=== PATIENT | male | born 1995 ===

== ENCOUNTER 2025-08-02 12:47 | Outpatient (CLI) | payer OTHER, SELFPAY ==
--- OUTSIDE RECORDS SUMMARY | 2020-05-17 08:45 | XMS_ITS | Continuity of Care Document ---
Author Organization [facility] nters Address [address] [place] [address] Phone Care Team Providers Care Parts Sales Advisor Name Role Phone Luis M Pino OD Unavailable Unavailable Allergies, Adverse Reactions, Alerts Substance Reaction Status Criticality No Known Allergies Active No Inform ation Medications Medication Instructions Dosage Effective Dates (start - stop) Status Comments Keflex 500 mg capsule 1 po bid - Active prednisone 20 mg tablet take 1 tablet (20MG) by oral route 2 times every day 20 MG - Active LACTULOSE (unknown strength) Not Available - Active prednisone 20 mg tablet take 2 tablet by oral route 2 times every day 40 MG - Active erythromycin 5 mg/gram (0.5 %) eye ointment apply (1CM) by ophthalmic route 2 times every day ribbon into the lower conjunctival sac(s) in the affected eye(s) 1 CM - No Longer Active Procedures Procedure Date OV EST DETAILED OV NEW MODERATE OV EST DETAILED Limited Oral Evaluation Problem Focused Intraoral Periapical First Film Prophylaxis Adult Topical Application Of Fluor jailene (Prophylaxis Not Included) Adult Dental Work Complete 2011 Exam 11 Comprehensive Oral Evaluatio n New Or Established Patient Intraoral Periapical First Film Bitewings Four Films Panoramic Film First Visit With Dental Advance Directives Directive Yes / No Effective Date File Name No Information Encounters Encounter Description Practice Location Reason(s) For Visit Diagnoses Date Provider Providers Copied on Encounter OV EST DETAILED [facility], [address], [place], [place], [id number], [place] tel:[phone] [facility] redness (chief complaint) Abrasion of left cornea, initial encounter 0 Alvarez Asencio. [address] [place] [address], [id number] [place], [place], [place], [id number], [place]. tel:[phone] OV NEW MODERATE [facility], [address], [place], [place], [id number], [place] tel:[phone] [facility] Family Practice Health Maintenance (chief complaint)ER f/u (chief complaint) JaundiceAlcoho lic hepatitis with ascites 8 Benjamín Alicia. [address], [id number] [place], [place], [place], [id number], [place]. tel:[phone] OV EST DETAILED [facility], [address], [place], [place], [id number], [place] tel:[phone] [facility] Urgent Care sore throat (chief complaint) Acute tonsillitis 3 Luois Salvador. [address], [id number] [place], [place], [place], [id number], [place]. tel:[phone] [place] [address], [address], [place], [place], [id number], [place] tel:[phone] [facility] Dental No Information 3 Jihan Gary. [address], [id number] [place], [place], [place], [id number], [place]. tel:[phone] [place] [address], [address], [place], [place], [id number], [place] tel:[phone] [facility] Dental No Information 1 Javier Zavala. [address], [place], [address]. tel:[phone] [facility], [address], [place], [place], [id number], [place] tel:[phone] [facility] Dental No Information 1 Jihan Gary. [address], [id number] [place], [place], [place], [id number], [place]. tel:[phone] Family History Family Member Type Diagnosis Age At Onset Paternal grandfather Problem (finding) hypertension Problem (finding) Family history of hyper tension Problem (finding) No family hist ory of Diabetes mellitus Payers Payer name Insurance type Covered republican ID Authoriza tion(s) No Information Social History Type Description Quantity Date Captured Comments Alcohol Use Details Unknown Caffeine Use Details Unknown Tobacco Use Status Smoking Status No Information Non-Smoking Tobacco Use Details : No Details Available : No Details Available Sex Male Sexual Orientation Straight or heterosexual Gender Identity Male Chief Complaint And Reason For Visit From encounter dated '05/17/2020 13:45'. redness (chief complaint). Description: The 24 year old male presents for evaluation of redness in the left > right. Was working under your car and got something into the eye about 2 days ago. Reason For Referral Reason For Referral No Information Plan Of Treatment Date Type Action Status Goal PHQ-9. Due on du e Goal BMP. Due on due Goal Dental Exam. Due on 020 due Goal HIV Ab. Due on d ue Goal HIV Ab. Due on d ue Goal BMP. Due on due Goal Dental Exam. Due on 018 due Goal PHQ-9. Due on du e Goal Tobacco cessation counseling completed Referral Ordered: Referrals: Liver Specialist. Evaluate and treat ordered History Of Present Illness Encounter Date Complaint History Of Prese nt Illness redness The 24 year old male presents for evaluation of redness in the left > right. Was working under your car and got something into the eye about 2 days ago. ER f/u seen in the ER a t Tim 07/17/18 for jaundice and alcohol abuse Health Maintenance due flu, tdap , and men b Functional Status Date Functional Assessmen t No Information Instructions Date Instruction Additional Infor mation Return in 1-2 weeks Related to A brasion of left cornea, initial encounter Impression/Plan Related to Abras ion of left cornea, initial encounter cont. with specialist Related to Jaundice EDU Related to Acute tonsillitis Assessments Type Assessment Date assessment Abrasion of left cornea, initial encounter impression Abrasion of left cornea, initial encounter: S05.02XA Patient Care Teams Name Effective Dates (start - stop) Status Members No Information
--- OUTSIDE RECORDS SUMMARY | 2021-12-20 10:15 | XMS_ITS | Continuity of Care Document ---
Author Organization [facility] nters Address [address] [place] [address] Phone Care Team Providers Care Hand Hardener Name Role Phone Ariel URIAS, Moreno Unavailable Unavailable Allergies, Adverse Reactions, Alerts Substance Reaction Status Criticality No Known Allergies Active No Inform ation Medications Medication Instructions Dosage Effective Dates (start - stop) Status Comments naproxen 500 mg tablet take 1 tablet by oral route 2 times every day with food as needed 500 MG - Active hydrocodone 5 mg-acetaminophen 325 mg tablet take 1 tablet by oral route every 6 hours as needed for pain 1.00 tablet - Active Augmentin 875 mg-125 mg tablet take 1 tablet by oral route every 12 hours - No Longer Active Procedures Procedure Date IMMUNIZATION ADMIN ONEVACCINE INTRMUSCUL AR TD VACCINE >7 IM OV NEW DETAILED Advance Directives Directive Yes / No Effective Date File Name No Information Encounters Encounter Description Practice Location Reason(s) For Visit Diagnoses Date Provider Providers Copied on Encounter OV NEW DETAILED [facility], [address], [place], [place], [id number], [place] tel:[phone] [facility] Injury (chief complaint)He alth Maintenance (chief complaint) Dog bite, initial encounterCellulit is of left upper extremityNeed for tetanus, diphtheria, and acellular pertussis (Tdap) vaccine 2 Ariel Mayer. [address], [id number], [place], [place], [id number] , [place]. tel:[phone] Family History Family Member Type Diagnosis Age At Onset No Information Immunizations Vaccine Date Status Comments [facility] administered Source: [facility] unization Record Payers Payer name Insurance type Covered libertarian ID Yonathan eduardo(s) Self Pay OF [id number] Self Pay OF [id number] Social History Type Description Quantity Date Captured Comments Alcohol Use Details No Caffeine Use Details No Tobacco Use Status Current non-smoker Smoking Status Never smoker Non-Smoking Tobacco Use Details : No Details Available : No Details Available Sex Male Sexual Orientation Straight or heterosexual Gender Identity Male Vital Signs Date / Time: Height Weight BMI Pulse Rate Blood Pressure Temperature Respiratory Rate Body Surface Area Head Circumference Head Circ. Percentile Wt./Prasanna. Percentile BMI percentile Pulse Ox Inhaled Ox 3:38 PM 72.00 in 86.273 kg (190.20 lbs) 25.8 0 kg/m eter (2) 87 /min 144/92 mm[Hg] 18 /min 96 % Chief Complaint And Reason For Visit From encounter dated '12/20/2021 15:15'. Injury (chief complaint). Description: This is an initial visit. Mechanism of injury details: breaking up dog fight last night. The patient was bitten by a dog on the left hand and is described as aching. Health Maintenance (chief complaint). Description: VACCINES DUE_KSS Reason For Referral Reason For Referral No Information Plan Of Treatment Date Type Action Status Goal HIV Ab. Due on d ue Goal BMP. Due on due Goal Dental Exam. Due on 022 due Goal PHQ-9. Due on du e History Of Present Illness Encounter Date Complaint History Of Prese nt Illness Health Maintenance VACCINES DUE_ KSS Injury This is an initi al visit. Mechanism of injury details: breaking up dog fight last night. The patient was bitten by a dog on the left hand and is described as aching. Functional Status Date Functional Assessmen t No Information Instructions Date Instruction Additional Infor mation No Information Assessments Type Assessment Date assessment Dog bite, initial encounter assessment Cellulitis of left upper extremi ty assessment Need for tetanus, di phtheria, and acellular pertussis (Tdap) vaccine impression Sec to dog biterepor ts known dog who are fully vaccinated Tetanus updatedtreat with AugmentinNaproxen and [place] prn for pain clear ED precautions given rtc in 4-5 days for follow up Mental Status Date Cognitive Assessment Orientation - [place] ed to time, place, person, situation. Patient Care Teams Name Effective Dates (start - stop) Status Members No Information
--- OUTSIDE RECORDS SUMMARY | 2025-08-02 12:54 | XMS_ITS | Clinical Summary ---
Author Organization [facility] Address [address] [place] [address] Care Team Providers Care Photo Print Specialist Name Role Phone Andrea David MD, [facility] Primary Care Provider [phone] Allergies No known active allergies Medications levETIRAcetam (KEPPRA) 1000 MG tablet Take 1 tablet (1,000 mg total) by mouth 2 (two) times daily. Active Clindamycin-Tremayne zoyl Per, Refr, 1.2-5 % Gel Active Acetaminophen 325 MG Cap Active aspirin 325 MG tablet Take 1 tablet (325 mg total) by mouth daily. Active polycarbophil (FIBERCON) 625 MG tablet Take 1 tablet (625 mg total) by mouth daily. Active chlorpheniramin e (CHLOR-TRIMETON ) 4 MG tablet Take 1 tablet (4 mg total) by mouth every 6 (six) hours as needed for Allergies. Active hydrocortisone (CORTIZONE) 0.5 % cream Apply topically 2 (two) times daily. Active Magnesium Hydroxide (MILK OF MAGNESIA OR) Acti ve Selenium Sulfide 2.3 % Shampoo Active simethicone (MYLICON) 80 MG chewable tablet Chew 1 tablet (80 mg total) by mouth every 6 (six) hours as needed for Flatulence. Active tolnaftate (TINACTIN) 1 % cream Apply topically 2 (two) times daily. Active diclofenac sodium (VOLTAREN) 1 % gel Apply 2 g topically 4 (four) times daily. 2 g Active Encounters Date Type Department Care Team Description 07/08/2025 2:17 PM CDT - 07/08/2025 3:24 PM CDT Emergency [facility] Emergency Services [address] [place] [address] Yazmin Deluca MD Fall Discharge Disposition: Home or Self Care (Routine Discharge) 07/08/2025 Travel 05/25/2025 6:56 AM CDT - 05/25/2025 11:59 PM CDT Hospital Encounter [facility] Nuclear Medicine [address] [place] [address] Phan Mendez MD Discharge Disposition: Home or Self Care (Routine Discharge) 05/25/2025 Travel from Last 3 Months Social History Tobacco Use Types Packs/Day Years Used Date Smoking Tobacco: Former Cigarettes Alcohol Use Standard Drinks/Week Comments Yes 0 (1 standard drink = 0.6 oz pur e alcohol) in past , not currently Sex and Gender Information Value Date Recorded Sex Assigned at Not on file Legal Sex Male 12:08 PM CDT Gender Identity Not on file Sexual Orientation Not on file Last Filed Vital Signs Vital Sign Reading Time Taken Comments Blood Pressure 145/85 07/08/2025 2:27 PM CDT Pulse 97 07/08/2025 2:27 PM CDT Temperature 37.1 C (98.7 F) 07/08/2025 2:27 PM CDT Respiratory Rate 18 07/08/2025 2:27 PM CDT Oxygen Saturation 98% 07/08/2025 2:27 PM CDT Inhaled Oxygen Concentration - - Weight 83.9 kg (185 lb) 07/08/2025 2:27 PM CDT Height 182.9 cm (6') 07/08/2025 2:27 PM CDT Body Mass Index 25.09 07/08/2025 2:27 PM CDT Plan of Treatment Upcoming Encounters Date Type Department Care Team (Late st Contact Info) Description 09/19/2025 2:20 PM FIELD MARKETING TEAM LEADER Office Visit [facility] [place] [address] [place] [phone] Roe Rodriguez MD [address] [place] [id number] Health Maintenance Due Date Last Done Comments Annual Physical 1998 DTaP, Tdap and Td Vaccines ( 1 - Tdap) 2014 Hepatitis B Vaccines (1 of 3 - 19+ 3-dose series) 2014 Pneumococcal Vaccine: Pediat rics (0 to 5 Years) and At-Risk Patients (6 to 49 Years) (1 of 2 - PCV) 2014 HPV Vaccines (1 - 3-dose SCD M series) 2022 PHQ-2 (Physician [place]) 11/02/2024 COVID-19 Vaccine (1 - 2023-2 5 season) 2025 Influenza Adult (#1) 2025 Hepatitis C Completed 10/14/2023 Meningococcal B Vaccine Aged Out No l onger eligible based on patient's age to complete this topic Meningococcal Vaccine Aged Out No faye gela eligible based on patient's age to complete this topic RSV Immunizations Under 20 Months Aged Out No longer eligible based on patient's age to complete this topic Procedures Procedure Name Priority Date/Time Associated Diagnosis Comments XR FEMUR RT 2V STAT 07/08/2025 2:47 PM CDT XR RIBS RT+PA CHEST STAT 07/08/2025 2 :47 PM CDT XR HIP RT 2V STAT 07/08/2025 2:47 PM CDT XR HAND RT 3V STAT 07/08/2025 2:47 PM CDT NM HEPATOBILIARY SCAN W/GB EJECTION FRACTION Routine 05/25/2025 9:25 AM CDT RUQ pain HEPATITIS PANEL,ACUTE Routine 10/14/2023 9:48 AM FIELD MARKETING TEAM LEADER Alcoholic cirrhosis of liver without ascites from Last 3 Months or Most Recently Relevant to Health Maintenance Results * XR FEMUR RT 2V (07/08/2025 2:47 PM CDT) Anatomical Region Laterality Modality Femur Computed Tomogra phy 07/08/2025 2:49 PM CDT Impressions 07/08/2025 3:01 PM CDT IMPRESSION: No acute osseous abnormality. Referred By: Interpreted By: Alok hCavez MD, 07/08/2025 2:49 PM Narrative 07/08/2025 3:01 PM CDT [address] [place] [address] IMAGING STUDIES: XR FEMUR RT 2V, XR HIP RT 2V DATE: 07/08/2025 2:23 PM COMPARISON: No comparisons. CLINICAL HISTORY: pain. Fall. FINDINGS: There is no evidence of acute fracture, dislocation, or osseous erosion. Normal contour to the femoral head. No radiopaque foreign bodies or abnormal soft tissue calcifications noted. Right hip articular cartilage is well-maintained. Procedure Note Alok Chavez MD - 07/08/[address] [place] [address] IMAGING STUDIES: XR FEMUR RT 2V, XR HIP RT 2V DATE: 07/08/2025 2:23 PM COMPARISON: No comparisons. CLINICAL HISTORY: pain. Fall. FINDINGS: There is no evidence of acute fracture, dislocation, or osseous erosion.Normal contour to the femoral head. No radiopaque foreign bodies or abnormal soft tissue calcificationsnoted. Right hip articular cartilage is well-maintained. IMPRESSION: No acute osseous abnormality. Referred By: Interpreted By: Alok Chavez MD, 07/08/2025 2:49 PM Yazmin Deluca MD GENERAL IMAGING Final Resul t * XR RIBS RT+PA CHEST (07/08/2025 2:47 PM CDT) Anatomical Region Laterality Modality Chest Computed Tomogra phy 07/08/2025 2:50 PM CDT Impressions 07/08/2025 2:54 PM CDT IMPRESSION:===== No acute fracture or dislocation.. No evidence of acute cardiopulmonary disease. No pleural effusion or pneumothorax Referred By: Interpreted By: Alok Chavez MD, 07/08/2025 2:50 PM Narrative 07/08/2025 2:54 PM CDT [address] [place] [address] Examination: Right Ribs Radiograph. WITH FRONTAL VIEW CHEST Exam date/time: 07/08/2025 2:19 PM Reason For Exam: pain Fall. Pain to lateral and anterior right ribs below the nipple line. Comparison: None Technique: 5 views Findings: No evidence of fracture or dislocation. No suspicious bone lesion.. No infiltrate. No effusion or pneumothorax ===== Procedure Note Alok Chavez MD - 07/08/[address] [place] [address] Examination: Right Ribs Radiograph. WITH FRONTAL VIEW CHEST Exam date/time: 07/08/2025 2:19 PM Reason For Exam: pain Fall. Pain to lateral and anterior right ribs below the nipple line. Comparison: None Technique: 5 views Findings: No evidence of fracture or dislocation. No suspicious bone lesion.. No infiltrate. No effusion or pneumothorax ===== IMPRESSION:===== No acute fracture or dislocation.. No evidence of acute cardiopulmonary disease. No pleural effusion orpneumothorax Referred By: Interpreted By: Alok Chavez MD, 07/08/2025 2:50 PM us Yazmin Deluca MD GENERAL IMAGING Final Resul t * XR HIP RT 2V (07/08/2025 2:47 PM CDT) Anatomical Region Laterality Modality Hip Computed Tomogra phy 07/08/2025 2:49 PM CDT Impressions 07/08/2025 3:01 PM CDT IMPRESSION: No acute osseous abnormality. Referred By: Interpreted By: Alok Chavez MD, 07/08/2025 2:49 PM Narrative 07/08/2025 3:01 PM CDT [address] [place] [address] IMAGING STUDIES: XR FEMUR RT 2V, XR HIP RT 2V DATE: 07/08/2025 2:23 PM COMPARISON: No comparisons. CLINICAL HISTORY: pain. Fall. FINDINGS: There is no evidence of acute fracture, dislocation, or osseous erosion. Normal contour to the femoral head. No radiopaque foreign bodies or abnormal soft tissue calcifications noted. Right hip articular cartilage is well-maintained. Procedure Note Alok Chavez MD - 07/08/[address] [place] [address] IMAGING STUDIES: XR FEMUR RT 2V, XR HIP RT 2V DATE: 07/08/2025 2:23 PM COMPARISON: No comparisons. CLINICAL HISTORY: pain. Fall. FINDINGS: There is no evidence of acute fracture, dislocation, or osseous erosion.Normal contour to the femoral head. No radiopaque foreign bodies or abnormal soft tissue calcificationsnoted. Right hip articular cartilage is well-maintained. IMPRESSION: No acute osseous abnormality. Referred By: Interpreted By: Alok Chavez MD, 07/08/2025 2:49 PM Yazmin Deluca MD GENERAL IMAGING Final Resul t * XR HAND RT 3V (07/08/2025 2:47 PM CDT) Anatomical Region Laterality Modality Hand Computed Tomogra phy 07/08/2025 2:49 PM CDT Impressions 07/08/2025 2:58 PM CDT IMPRESSION: No acute osseous abnormality. Specifically no acute pathology of the thumb. Referred By: Interpreted By: Alok Chavez MD, 07/08/2025 2:49 PM Narrative 07/08/2025 2:58 PM CDT [address] [place] [address] IMAGING STUDIES: XR HAND RT 3V DATE: 07/08/2025 2:19 PM CLINICAL HISTORY: pain. Fall. Pain in thumb and into wrist. COMPARISON: No Comparisons. FINDINGS: No evidence of acute fracture or dislocation. Articular margins are within normal limits.. No radiopaque foreign bodies or abnormal soft tissue calcifications noted. . Old healed fracture of the fifth metacarpal.. Old appearing posttraumatic versus postinfectious change of the tuft of the index finger. No overlying soft tissue abnormality. Procedure Note Alok Chavez MD - 07/08/[address] [place] [address] IMAGING STUDIES: XR HAND RT 3V DATE: 07/08/2025 2:19 PM CLINICAL HISTORY: pain. Fall. Pain in thumb and into wrist. COMPARISON: No Comparisons. FINDINGS: No evidence of acute fracture or dislocation. Articular margins are withinnormal limits.. No radiopaque foreign bodies or abnormal soft tissue calcifications noted.. Old healed fracture of the fifth metacarpal.. Old appearing posttraumatic versus postinfectious change of the tuft ofthe index finger. No overlying soft tissue abnormality. IMPRESSION: No acute osseous abnormality. Specifically no acute pathology of thethumb. Referred By: Interpreted By: Alok Chavez MD, 07/08/2025 2:49 PM Yazmin Deluca MD GENERAL IMAGING Final Resul t * NM HEPATOBILIARY SCAN W/GB EJECTION FRACTION (05/25/2025 9:25 AM CDT) Anatomical Region Laterality Modality Abdomen Computed Tomogra phy 05/25/2025 9:39 AM CDT Impressions 05/25/2025 9:53 AM CDT IMPRESSION: 1. Normal contractile response of the gallbladder to a fat-containing liquid meal. 2. Mild hepatocellular dysfunction with hepatomegaly and an atrophic appearing left hepatic lobe. Ordered By: PHAN MENDEZ V Interpreted By: Garima Galindo MD, 05/25/2025 9:39 AM Narrative 05/25/2025 9:53 AM CDT [address] [place] [address] EXAMINATION: HEPATOBILIARY SCINTIGRAPHY (WITH GALLBLADDER EJECTION FRACTION) DATE OF STUDY: 05/25/2025 7:00 AM RADIOPHARMACEUTICAL: 5.0 mCi Tc-99m mebrofenin i.v. and 240 mL Ensure p.o. HISTORY: Right upper quadrant pain intermittently for 10 years. Prior nuclear medicine studies used for comparison: none Other radiographic comparisons: none FINDINGS: Following intravenous administration of tracer, sequential abdominal images were obtained. The left hepatic lobe appears atrophic and the right hepatic lobe appears enlarged. There is mildly delayed blood pool clearance of activity. There is normal filling of the intrahepatic ducts, common bile duct and gallbladder and normal excretion of the tracer into the duodenum. In order to evaluate the contractile response of the gallbladder to a fat- containing meal, the patient was given Ensure to drink, starting approximately 60 minutes after the administration of the radiopharmaceutical. Sequential imaging was continued for 60 minutes after the start of the liquid meal. These images demonstrate good contraction of the gallbladder. The calculated gallbladder ejection fraction is 89%. In normal subjects, the lower limit of normal gallbladder ejection fraction for Ensure is 33% Procedure Note Garima Galindo MD - 05/25/[address] [place] [address] EXAMINATION: HEPATOBILIARY SCINTIGRAPHY (WITH GALLBLADDER EJECTIONFRACTION) DATE OF STUDY: 05/25/2025 7:00 AM RADIOPHARMACEUTICAL: 5.0 mCi Tc-99m mebrofenin i.v. and 240 mL Ensurep.o. HISTORY: Right upper quadrant pain intermittently for 10 years. Prior nuclear medicine studies used for comparison: none Other radiographic comparisons: none FINDINGS: Following intravenous administration of tracer, sequentialabdominal images were obtained. The left hepatic lobe appears atrophic andthe right hepatic lobe appears enlarged. There is mildly delayed bloodpool clearance of activity. There is normal filling of the intrahepaticducts, common bile duct and gallbladder and normal excretion of the tracerinto the duodenum. In order to evaluate the contractile response of the gallbladder to afat- containing meal, the patient was given Ensure to drink, startingapproximately 60 minutes after the administration of theradiopharmaceutical. Sequential imaging was continued for 60 minutesafter the start of the liquid meal. These images demonstrate goodcontraction of the gallbladder. The calculated gallbladder ejectionfraction is 89%. In normal subjects, the lower limit of normal gallbladder ejectionfraction for Ensure is 33% IMPRESSION: 1. Normal contractile response of the gallbladder to a fat-containingliquid meal. 2. Mild hepatocellular dysfunction with hepatomegaly and an atrophicappearing left hepatic lobe. Ordered By: PHAN MENDEZ V Interpreted By: Garima Galindo MD, 05/25/2025 9:39 AM Phan David MD [facility] Final Result * HEPATITIS PANEL,ACUTE (10/14/2023 9:48 AM FIELD MARKETING TEAM LEADER) HEPATITIS B SURFACE AG NON-REACTI VE NON-REACTI VE 10/14/2023 5:53 PM FIELD MARKETING TEAM LEADER [facility] HEP B CORE IGM NON-REACTI VE NON-REACTI VE 10/14/2023 5:53 PM FIELD MARKETING TEAM LEADER [facility] HAV IGM NON-REACTI VE NON-REACTI VE 10/14/2023 5:53 PM FIELD MARKETING TEAM LEADER [facility] HEPATITIS C AB NON-REACTI VE NON-REACTI VE 10/14/2023 5:53 PM FIELD MARKETING TEAM LEADER [facility] 10/14/2023 9:48 AM FIELD MARKETING TEAM LEADER Roe Rodriguez MD LABORATORY Final Result [facility] [address] [place] [address], [place] [phone] from Last 3 Months or Most Recently Relevant to Health Maintenance Insurance [employer] Care Teams Photo Print Specialist Relationship Specialty Start Date End Date Phan Mendez MD [facility] [address] [place] [address] PCP - General INTERNAL MEDICINE 05/21/23
--- NOTE | 2025-08-02 13:20 | NEURO_ITS ---
Impression: # Complains of numbness of left hand. # Left Carpal Tunnel Syndrome. # No Ulnar Neuropathy. # Normal Needle/ EMG exam. Nerve Conduction Studies ?Stim Site NR Peak (ms) P-T Amp (?V) Site1 Site2 Delta-P (ms) Dist (cm) Ankit (m/s) Left Sup Fibular Anti Sensory (Ant Lat Mall) 14 cm ? 3.2 7.7 14 cm Ant Lat Mall 3.2 16.0 50 Right Sup Fibular Anti Sensory (Ant Lat Mall) 14 cm ? 3.5 13.3 14 cm Ant Lat Mall 3.5 16.0 46 Left Sural Anti Sensory (Lat Mall) Calf ? 5.9 10.2 Calf Lat Mall 5.9 16.0 27 Right Sural Anti Sensory (Lat Mall) Calf ? 5.8 1.7 Calf Lat Mall 5.8 16.0 28 ?Stim Site NR Onset (ms) O-P Amp (mV) Site1 Site2 Delta-0 (ms) Dist (cm) Ankit (m/s) Left Peroneal Motor (Vastus Med) Ankle ? 3.8 3.7 Popit Ankle 8.6 39.0 45 Popit ? 12.4 2.6 Right Peroneal Motor (Vastus Med) Ankle ? 3.8 4.0 Popit Ankle 8.4 38.0 45 Popit ? 12.2 3.5 Left Tibial Motor (Abd Bales Brev) Ankle ? 5.9 3.9 Knee Ankle 9.6 39.0 41 Knee ? 15.5 2.0 Right Tibial Motor (Abd Bales Brev) Ankle ? 4.3 8.4 Knee Ankle 7.7 37.0 48 Knee ? 12.0 3.9 F Wave Studies ?NR F-Lat (ms) L-R F-Lat (ms) Left Peroneal (Mrkrs) (EDB) ? 48.95 1.44 Right Peroneal (Mrkrs) (EDB) ? 47.51 1.44 Left Tibial (Mrkrs) (Abd Hallucis) ? 51.37 3.11 Right Tibial (Mrkrs) (Abd Hallucis) ? 48.25 3.11 Electromyography ?Side Muscle Nerve Root Ins Act Fibs Amp Dur Recrt Comment Right AntTibialis Dp Br Fibular L4-5 Nml Nml Nml Nml Nml Right Gastroc Tibial S1-2 Nml Nml Nml Nml Nml Right Fibularis Long Sup Br Fibular L5-S1 Nml Nml Nml Nml Nml Right Flex Dig Long Tibial L5-S2 Nml Nml Nml Nml Nml Right Ext Dig Brev Dp Br Fibular L5, S1 Nml Nml Nml Nml Nml Right QuadratusFem QuadFemoris L4-5, S1 Nml Nml Nml Nml Nml Left AntTibialis Dp Br Fibular L4-5 Nml Nml Nml Nml Nml Left Gastroc Tibial S1-2 Nml Nml Nml Nml Nml Left Fibularis Long Sup Br Fibular L5-S1 Nml Nml Nml Nml Nml Left Flex Dig Long Tibial L5-S2 Nml Nml Nml Nml Nml Left Ext Dig Brev Dp Br Fibular L5, S1 Nml Nml Nml Nml Nml Left QuadratusFem QuadFemoris L4-5, S1 Nml Nml Nml Nml Nml
== END 2025-08-02 12:48 | disposition home or self-care (01) ==
LOC: ANHNEURO 12:51
PROVIDERS: Visit Provider Internal Medicine
DX: Z03.818 Encounter for observation for suspected exposure to other biological agents ruled out (principal); G40.909 Epilepsy, unspecified, not intractable, without status epilepticus; K74.60 Unspecified cirrhosis of liver; R20.2 Paresthesia of skin; L70.9 Acne, unspecified; M23.6 Other spontaneous disruption of ligament(s) of knee; L02.91 Cutaneous abscess, unspecified; K82.9 Disease of gallbladder, unspecified; Z71.9 Counseling, unspecified; D69.6 Thrombocytopenia, unspecified; F19.99 Other psychoactive substance use, unspecified with unspecified psychoactive substance-induced disorder; F11.20 Opioid dependence, uncomplicated; R79.9 Abnormal finding of blood chemistry, unspecified; G56.02 Carpal tunnel syndrome, left upper limb
CPT/HCPCS: 95886; 95909